=== PATIENT | female | born 1990 | race Caucasian/White ===

== ENCOUNTER 2019-08-07 15:04 | Emergency (ER) | payer OTHER, SELFPAY ==
--- NOTE | 2019-08-07 15:25 | ED.GENADULT ---
HPI - General Adult General Chief complaint: Dental/Oral Stated complaint: Tooth ache Time Seen by Provider: 08/07/19 15:25 Source: patient and RN notes reviewed History of Present Illness HPI narrative: Patient is a 28-year-old female presents the urgent care with complaints of lower right dental pain. Patient states that started 5 days ago and she has not taken anything for her pain. Patient states that she could not wait to get to a dentist and thought that it may be infected. Patient denies of any fever, nausea, vomiting, bad taste in the mouth. No other acute complaints. No acute distress noted. Patient read the plan of care. Related Data Home Medications Medication Instructions Recorded Confirmed alprazolam 08/07/19 buprenorphine-naloxone 1 film SUBLINGUAL DIRECTED 08/07/19 08/07/19 Allergies Allergy/AdvReac Type Severity Reaction Status Date / Time tramadol Allergy Unknown Verified 12/21/11 13:13 Review of Systems Review of Systems: Narrative: CONSTITUTIONAL: Denies fever, chills, or sweats. EYES: Denies visual changes, redness, or discharge. ENT: Denies rhinorrhea, congestion, sore throat, or otalgia. Reports of lower right dental pain CARDIOVASCULAR: Denies chest pain, palpitations, or edema. RESPIRATORY: Denies cough or dyspnea. GASTROINTESTINAL: Denies abdominal pain, nausea, vomiting, or diarrhea. GENITOURINARY: Denies dysuria or hematuria. SKIN: Denies rash or itching. MUSCULOSKELETAL: Denies back pain, joint pain, or myalgia. NEUROLOGIC: Denies headache, numbness, or weakness. PMFSH Social History Social History Alcohol intake: never Gender identity (if verbalized by the patient): Female Comments At the time of my signature, I reviewed and agree with the nursing past medical, surgical, social, and family history. There is no relevant family history pertinent to the patient complaint. Exam Narrative: Exam Narrative: GENERAL: This is a well-nourished, well-developed patient, in no apparent distress. HEAD: normocephalic, atraumatic. EYES: PERRL. Sclera clear/white. Vision is grossly intact. EARS: External ears normal NOSE: External nose normal with no obvious nasal discharge THROAT: Mucous membranes moist MOUTH: Notable dental caries noted to the buccal aspect of right lower first molar, tooth #3-no notable abscess, erythema, edema NECK: Neck supple CARDIOVASCULAR: Regular rate and rhythm without murmurs, gallops, or rubs. RESPIRATORY: Clear to auscultation. Breath sounds equal bilaterally. No wheezes, rales, or rhonchi. SKIN: warm, intact with no suspicious lesions or rash, good texture and turgor. NEURO: awake, alert, and oriented to person, place and time. There were no obvious focal neurologic abnormalities. EXTREMITIES: No clubbing, cyanosis, or edema. Course Vital Signs Vital signs: Vital Signs Temperature 98.7 F 08/07/19 15:26 Pulse Rate 70 08/07/19 15:26 Respiratory Rate 18 08/07/19 15:26 Blood Pressure 115/60 08/07/19 15:26 Pulse Oximetry 100 08/07/19 15:26 Temperature 98.7 F 08/07/19 15:26 Pulse Rate 70 08/07/19 15:26 Respiratory Rate 18 08/07/19 15:26 Blood Pressure 115/60 08/07/19 15:26 Pulse Oximetry 100 08/07/19 15:26 Reviewed Medical Decision Making MDM Narrative Medical decision making narrative: Advised the patient to brush and floss daily. May use Prevention mouthwash [id number] for dental caries. No obvious treatable abscess at this time however without proper dental care, it may turn into a dental abscess. Therefore, follow-up with dentist within 1 week for reevaluation and to have the cavity filled. Differential Diagnosis Differential Diagnosis: Gingivitis, periodontal disease, trench mouth Vital Signs Vital Signs: Vital Signs Temperature 98.7 F 08/07/19 15:26 Pulse Rate 70 08/07/19 15:26 Respiratory Rate 18 08/07/19 15:26 Blood Pressure 115/60 08/07/19 15:26 Pulse Oximetry 100 08/07/19 15:26
[2019-08-07 15:26] VITALS: BP 115/60; PULSE 70; RESP 18; TEMP 37.1; O2SAT 100
== END 2019-08-07 15:43 | disposition home or self-care (01) ==
PROVIDERS: Emergency Provider Nurse Practitioner Family
DX: K02.9 Dental caries, unspecified (principal); F41.9 Anxiety disorder, unspecified
CPT/HCPCS: 99211; G0463

== ENCOUNTER 2021-08-16 14:31 | Outpatient (CLI) | payer OTHER, SELFPAY ==
--- NOTE | ~2021-08-16 | US_ITS ---
EXAMINATION: US venous doppler [facility] DATE: 08/16/2021 15:13 INDICATION: Lower limb edema. TECHNIQUE: Grayscale ultrasound images without and with compression and Doppler ultrasound images of the bilateral lower extremity veins were obtained. COMPARISON: None. FINDINGS: The visualized portions of right common femoral vein, profunda (deep) femoral vein, femoral vein, pop liteal vein, peroneal veins, posterior tibial veins, and greater saphenous vein outflow are patent. The visualized portions of left common femoral vein, profunda femoral vein, femoral vein, popliteal v ein, peroneal veins, posterior tibial veins, and greater saphenous vein outflow are patent. IMPRESSION: 1. No deep venous thrombosis. Reviewed, dictated and finalized at location E. R EXCAVATOR OPERATOR
== END 2021-08-16 14:32 | disposition home or self-care (01) ==
LOC: ANHIMG 14:40
PROVIDERS: Visit Provider Physician Assistant
DX: R60.0 Localized edema (principal)
CPT/HCPCS: 93970

== ENCOUNTER 2021-08-17 07:56 | Outpatient (CLI) | payer OTHER, SELFPAY ==
[2021-08-17 08:46] LABS: Basophils Absolute Auto 0.1 K/mm3 (0.0-0.1); Basophils Percent Auto 0.8 % (0.2-1.2); Eosinophils Absolute Auto 0.3 K/mm3 (0-0.3); Eosinophils Percent Auto 3.8 % (0-4.4); Hematocrit 36.2 % (37.0-47.0); Hemoglobin 12.3 g/dL (12.0-15.0); Immature Granulocyte Absolute 0.02 K/mm3 (0.00-0.031); Immature Granulocyte Percent A 0.3 % (0-0.5); Lymphocytes Absolute Auto 1.37 K/mm3 (0.9-3.2); Lymphocytes Percent Auto 20.9 % (18.3-44.2); Mean Corpuscular Volume 94.3 fl (80-100); Mean Platelet Volume 9.7 fl (7.4-10.4); Monocytes Absolute Auto 0.6 K/mm3 (0.1-0.6); Monocytes Percent Auto 8.8 % (2.6-8.5); Neutrophils Absolute Auto 4.3 K/mm3 (1.3-6.7); Neutrophils Percent Auto 65.4 % (45.5-73.1); Platelet Count Result 245 k/mm3 (150-375); Red Blood Count 3.84 M/mm3 (4.2-5.4); White Blood Count 6.6 K/mm3 (4.5-10.0)
[2021-08-17 08:57] LABS: D Dimer 0.33 ug/mL (<0.48)
[2021-08-17 09:08] LABS: Alanine Aminotransferase 61 U/L (4-35); Albumin Level 4.5 g/dL (3.5-5.1); Alkaline Phosphatase 71 U/L (38-126); Anion Gap 6 mmol/L (8-16); Aspartate Amino Transferase 50 U/L (14-36); Bilirubin,Total 0.3 mg/dL (0.2-1.3); Blood Urea Nitrogen 10 mg/dL (7-17); CRP 0.9 mg/dL (<1.0); Calcium 9.5 mg/dL (8.4-10.2); Carbon Dioxide 28 mmol/L (22-30); Chloride 106 mmol/L (98-107); Estimated Glomerular Filt Rate > 60; Glucose 95 mg/dL (65-110); Potassium 4.4 mmol/L (3.4-5.0); Sodium 140 mmol/L (137-145)
[2021-08-17 10:06] LABS: Erythrocyte Sedimentation Rate 26 mm/hr (0-20)
== END 2021-08-17 07:57 | disposition home or self-care (01) ==
PROVIDERS: PCP Physician Assistant; Visit Provider Physician Assistant
DX: R60.0 Localized edema (principal)
CPT/HCPCS: 36415; 80053; 84443; 85025; 85380; 85652; 86140

== ENCOUNTER 2022-06-10 08:38 | Emergency (ER) | payer OTHER, SELFPAY ==
[2022-06-10 09:00] VITALS: BP 121/79; PULSE 102; RESP 16; TEMP 37.4; O2SAT 100
--- NOTE | 2022-06-10 09:12 | ED.URI ---
HPI - URI/Sore Throat General Chief Complaint: Upper Respiratory Infection Stated Complaint: cough, fever, body ache Time Seen by Provider: 06/10/22 09:12 Source: patient Mode of arrival: ambulatory Limitations: no limitations History of Present Illness HPI Narrative: 31-year-old female presents with complaint of headache, body aches, cough, fatigue and fever for 5 days. Reports that 2 family members at home also diagnosed with flu. Were unable to get Tamiflu due to pharmacy being out. Denies nausea vomiting diarrhea. No shortness of breath or chest pain. All systems reviewed and negative except as noted above. Related Data Home Medications Medication Instructions Recorded Confirmed alprazolam 1 mg tablet 0.1 mg PO DAILY 08/07/19 06/10/22 buprenorphine 8 mg-naloxone 2 mg 1 film sublingual DIRECTED 08/07/19 06/10/22 sublingual film sertraline 50 mg tablet 50 mg PO DAILY 06/10/22 06/10/22 Allergies Allergy/AdvReac Type Severity Reaction Status Date / Time tramadol Allergy Unknown Other Verified 06/10/22 09:02 Review of Systems Review of Systems: CONSTITUTIONAL: Reports fever, chills, or sweats. EYES: Denies visual changes, redness, or discharge. ENT: reports rhinorrhea, congestion, sore throat. Denies otalgia. CARDIOVASCULAR: Denies chest pain, palpitations, or edema. RESPIRATORY: reports cough. Denies dyspnea. GASTROINTESTINAL: Denies abdominal pain, nausea, vomiting, or diarrhea. GENITOURINARY: Denies dysuria or hematuria. SKIN: Denies rash or itching. MUSCULOSKELETAL: Denies back pain, joint pain, or myalgia. NEUROLOGIC: Denies headache, numbness, or weakness. PSYCHIATRIC: Denies anxiety or depression. All other systems reviewed are negative, except as documented in HPI. PMFSH Social History Social History Alcohol intake: never Gender identity (if verbalized by the patient): Female Comments At time of signature, agree with nursing past medical, surgical, social and family history. There is no relevant family history pertinent to the presenting complaint. Exam Narrative: GENERAL: This is a well-nourished, well-developed patient, in no apparent distress. HEAD: normocephalic, atraumatic. EYES: PERRL. Sclera clear/white. Vision is grossly intact. EARS: External ears normal, auditory canals clear and without drainage, TMs normal without perforation. Hearing grossly intact. NOSE: External nose normal with no obvious nasal discharge, nares without redness, no rhinorrhea. THROAT: Mucous membranes moist, posterior pharynx clear. NECK: Neck supple, non-tender without lymphadenopathy, masses or thyromegaly. CARDIOVASCULAR: Regular rate and rhythm without murmurs, gallops, or rubs. RESPIRATORY: Clear to auscultation. Breath sounds equal bilaterally. No wheezes, rales, or rhonchi. SKIN: warm, Dry, intact with no suspicious lesions or rash, good texture and turgor. NEURO: awake, alert, and oriented to person, place and time. There were no obvious focal neurologic abnormalities. EXTREMITIES: No joint tenderness, effusion, or edema noted. Course Course Level of Care: Express Care Visit Vital Signs Vital signs: Vital Signs Temperature 37.4 C 06/10/22 09:00 Pulse Rate 102 H 06/10/22 09:00 Respiratory Rate 16 06/10/22 09:00 Blood Pressure 121/79 06/10/22 09:00 Pulse Oximetry 100 06/10/22 09:00 Oxygen Delivery Room Air 06/10/22 09:00 Temperature 37.4 C 06/10/22 09:00 Pulse Rate 102 H 06/10/22 09:00 Respiratory Rate 16 06/10/22 09:00 Blood Pressure 121/79 06/10/22 09:00 Pulse Oximetry 100 06/10/22 09:00 Oxygen Delivery Room Air 06/10/22 09:00 reviewed MDM - URI/Sore Throat MDM Narrative Medical decision making narrative: Patient is aware of diagnosis, understands and agrees to treatment plan. Anticipatory guidance given. Patient agrees to follow-up as directed and is aware of reasons to seek care at the emergency department. Portions of thi
== END 2022-06-10 09:40 | disposition home or self-care (01) ==
PROVIDERS: Emergency Provider Nurse Practitioner Family
DX: J10.1 Influenza due to other identified influenza virus with other respiratory manifestations (principal); Z20.822 Contact with and (suspected) exposure to COVID-19
CPT/HCPCS: 87426; 87804; 99213; C9803; G0463

== ENCOUNTER 2022-08-18 11:07 | Outpatient (CLI) | payer OTHER, SELFPAY ==
[2022-08-18 12:15] LABS: Cholesterol 178 mg/dL (0-200); HDL Direct 55 mg/dL; Triglycerides 63 mg/dL (<150)
[2022-08-18 12:25] LABS: LDL Cholesterol Direct 84 mg/dL
[2022-08-18 12:45] LABS: Thyroid Stimulating Hormone 0.429 uIU/mL (0.465-4.680)
[2022-08-18 13:20] LABS: Hepatitis C Virus Antibody Reactive (Negative)
== END 2022-08-18 11:08 | disposition home or self-care (01) ==
LOC: ANHLAB 11:10
PROVIDERS: PCP Nurse Practitioner Family; Visit Provider Nurse Practitioner Family
DX: Z13.29 Encounter for screening for other suspected endocrine disorder (principal); Z13.220 Encounter for screening for lipoid disorders; Z11.59 Encounter for screening for other viral diseases
CPT/HCPCS: 36415; 80061; 84443; 86803; 87522

== ENCOUNTER 2022-09-23 15:37 | Outpatient (CLI) | payer OTHER, SELFPAY ==
--- NOTE | ~2022-09-23 | CT_ITS ---
EXAMINATION: CT soft tissue neck wo con DATE: 09/23/2022 16:00 INDICATION: Nodule of neck. TECHNIQUE: Computed tomography (CT) of the neck was performed without intravenous contrast. Automated exposure control and iterative reconstruction technique were employed. The dose-length product was 2 55.37 mGy-cm. COMPARISON: None FINDINGS: Calcified left lung nodules are consistent with old granulomatous disease. There is a 1.4 x 1.0 cm mass in the left parotid gland. There are no pathologically enlarged lymph nodes. The paranas al sinuses are clear. The mastoid air cells are normal. The bones are unremarkable. There are carious lesions of teeth 5, 13, and 14. IMPRESSION: 1. 1.4 x 1.0 cm mass in left parotid gland. The differential diagnosis includes benign mixed tumor, W arthin tumor, reactive lymph node, and less likely primary malignancy. 2. Dental disease. Reviewed, dictated and finalized at location A. IMPRESSION: 1. 1.4 x 1.0 cm mass in left parotid gland. The differential diagnosis includes benign mixed tumor, Warthin tumor, reactive lymph node, and less likely primar y malignancy. 2. Dental disease.
== END 2022-09-23 15:38 | disposition home or self-care (01) ==
LOC: ANHIMG 15:39
PROVIDERS: PCP Nurse Practitioner Family; Visit Provider Nurse Practitioner Family
DX: R22.1 Localized swelling, mass and lump, neck (principal)
CPT/HCPCS: 70490

== ENCOUNTER 2022-11-10 09:16 | Outpatient (CLI) | payer OTHER, SELFPAY ==
--- NOTE | ~2022-11-10 | US_ITS ---
EXAMINATION: US FNA w image guidance DATE: 11/10/2022 10:01 INDICATION: Left parotid mass. TECHNIQUE: The procedure and its benefits and risks were discussed with the patient. Risks specifically discusse d included bleeding. The patient verbalized understanding of the risks and agreed to proceed. The lef t face and neck was prepped and draped in the usual sterile manner. 1% lidocaine was used for local anesthesia. 6 passes were made with a 25G needle into the lesion under ultrasound guidance. There w ere no immediate complications. FINDINGS: Grayscale ultrasound images demonstrate needles advanced into a 1.6 x 1.2 cm hypoechoic mass in super ficial left parotid gland for biopsy. IMPRESSION: 1. Ultrasound-guided fine needle aspiration of a left parotid mass. Reviewed, dictated and finalized at location A.
== END 2022-11-10 09:17 | disposition home or self-care (01) ==
PROVIDERS: PCP Nurse Practitioner Family; Visit Provider Otolaryngology
DX: K11.8 Other diseases of salivary glands (principal)
CPT/HCPCS: 10005; 88108; 88305

== ENCOUNTER 2024-04-08 10:04 | Outpatient (CLI) | payer OTHER, SELFPAY ==
--- NOTE | ~2024-04-08 | US_ITS ---
EXAMINATION: US soft tissue head and neck DATE: 04/08/2024 10:23 INDICATION: Left neck mass. TECHNIQUE: Multiple grayscale and Doppler ultrasound images of the head and neck were obtained. COMPARISON: Neck CT 09/23/2022 FINDINGS: There is a 2.1 x 1.3 x 1.9 cm hypoechoic mass in left parotid gland. IMPRESSION: 1. 2.1 cm left parotid mass, increased from 1.6 cm on 11/10/2022. Biopsy on 11/10/2022 demonstrated a consuelo ign cellular neoplasm, where the pathologist favored pleomorphic adenoma. Reviewed, dictated and finalized at location A. IMPRESSION: 1. 2.1 cm left parotid mass, increased from 1.6 cm on 11/10/2022. 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
== END 2024-04-08 10:05 | disposition home or self-care (01) ==
LOC: MICIMG 10:05
PROVIDERS: PCP Nurse Practitioner Family; Visit Provider Nurse Practitioner Family
DX: K11.8 Other diseases of salivary glands (principal)
CPT/HCPCS: 76536